=== PATIENT | female | born 2000 ===

== ENCOUNTER 2024-07-11 08:28 | Outpatient (REF) | payer OTHER, SELFPAY ==
--- OUTSIDE RECORDS SUMMARY | 2024-07-11 08:47 | XMS_ITS | Encounter Summary ---
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 Name Role Phone Unavailable Primary Care Provider Unavailabl e Reason for Referral * Consultation (Routine) - Pending Review Specialty Diagnoses / Procedures Referred By Lucero [place] Referred To Contact Urogynecology Diagnoses Urinary frequency Dulce Maria Sharp [address] [place] [phone] [facility] [address] [place] [id number] Phone: tel: fax: Referral ID Status Reason Start Date Expiration Date Visits Requested Visits Authorized [id number] Pending Review Specialty Services Required 07/06/2024 08/06/2025 6 6 Encounter Details Date Type Department Care Team (Latest Contact Info) Description 07/06/2024 Transcribe Orders [facility] [address] [place] [id number] 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: Dulce Maria Conner [address] [place] [id number] Urinary frequency (Primary Dx) Social History Tobacco Use Types Packs/Day Years Used Date Smoking Tobacco: Never Smokeless Tobacco: Never Alcohol Use Standard Drinks/Week Comments Never 0 (1 standard drink = 0.6 oz pur e alcohol) Comments No Sex and Gender Information Value Date Recorded Sex Assigned at Female 04/16/2022 2:38 PM EST Legal Sex Female 6:45 PM EDT Gender Identity Female 04/16/2022 2:38 PM EST Sexual Orientation Don't know 04/16/2022 2: 38 PM EST documented as of this encounter Plan of Treatment Upcoming Encounters Date Type Department Care Team (Late st Contact Info) Description 08/16/2024 12:45 PM EDT Office Visit [facility] [address], [place] [phone] Wendy Padilla DO [address] [place] [address] Scheduled Referrals Name Type Priority Associated Diagnoses Order Schedule Ambulatory referral to Urogynecology Outpatient Referral Routine Urinary frequency Expected: 07/06/2024, Expires: 08/06/2025 documented as of this encounter Visit Diagnoses Diagnosis Urinary frequency- Primary documented in this encounter
== END 2024-07-11 08:29 | disposition home or self-care (01) ==
LOC: HO.UMASIMG 08:28
PROVIDERS: Visit Provider Family Medicine
DX: Z13.89 Encounter for screening for other disorder (principal)